=== PATIENT | female | born 1955 | race Caucasian/White ===

== ENCOUNTER → 2019-04-09 15:55 | Outpatient (CLI) | payer BC, SELFPAY ==
--- NOTE | 2019-04-09 16:03 | MM_ITS ---
PROCEDURE: MM DIG SCREENING MAMM BI W/CAD Patient Age:63Y CLINICAL INDICATION: SCREENING: No hormones. No new complaints. Noncontributory family history. COMPARISON: DIGMAMMS MAMMOGRAM SCREEN-SAP DEVELOPER N/C from 10/02/2008 DIGMAMMS MAMMOGRAM SCREEN-SAP DEVELOPER N/C from 10/23/2009 DIGMAMMDX MAMMOGRAM DX-SAP DEVELOPER N/C from 11/06/2009 DMSB DIGITAL MAMM-SCREEN BILATERAL from 10/02/2010 DMSB DIGITAL MAMM-SCREEN BILATERAL from 10/15/2011 DMSB DIG MAMM-SCREEN BETHANY from 02/15/2013 DMSB DIG MAMM-SCREEN BETHANY from 04/11/2014 DMSB DIG MAMM-SCREEN BETHANY from 03/22/2016 DMSB DIG MAMM-SCREEN BETHANY W/CAD from 04/13/2017 TECHNIQUE: Standard CC and MLO images were obtained. R2 CA she d reviewed. FINDINGS: Overall moderate breast density. Moderate density of slight asymmetry,. Heterogeneous fibroglandular elements at the central breast extend towards towards upper-outer quadrant both breast again encountered, similar pattern to previous studies dating back to at least 2011. No new dominant or suspicious new mass. No suspicious calcifications. Similar stable mild asymmetry. Left breast. No new areas significant concern Stable mild asymmetric area of tissue at superior left breast MLO view similar to studies dating back to 2013, 2012 2011 MLO views.. Can be followed.. CC view adequately stable as well Right breast: No significant new findings. Follow-up 1 year adequate Suggest encouraging self-breast examination to complement mammography in this moderately dense somewhat asymmetric breast IMPRESSION: no new areas significant concern Follow-up 1 year recommended Stable mild asymmetry. Moderate density breast. BI-RAD Category: 2 Benign Finding(s) FOLLOW-UP: 1YR 1 Year Follow-up (A letter has been sent to the patient regarding results of the study.) Dictated by: Herb Lockett MD 04/12/2019 09:07 Electronically signed by Herb Lockett MD in [place] 04/16/2019 08:41
== END ==
PROVIDERS: PCP Pediatrics; Visit Provider Pediatrics
DX: Z12.31 Encounter for screening mammogram for malignant neoplasm of breast (principal)
CPT/HCPCS: 77067

== ENCOUNTER → 2020-07-16 16:03 | Outpatient (CLI) | payer BC, SELFPAY ==
--- NOTE | 2020-07-16 16:09 | MM_ITS ---
PROCEDURE: MM DIG SCREENING MAMM BI W/CAD Digital Breast Tomosynthesis Included CLINICAL INDICATION: SCREENING There is no personal or family history of breast cancer. COMPARISON: MG DMSB DIG MAMM-SCREEN BETHANY from 03/22/2016 MG DMSB DIG MAMM-SCREEN BETHANY W/CAD from 04/13/2017 MG MM DIG SCREENING MAMM BI W/CAD from 04/09/2019 TECHNIQUE: Standard CC and MLO images and 3D Tomosynthesis was obtained. R2 CAD reviewed. FINDINGS: Moderate scattered fibroglandular densities are seen in both breast. There are 2 benign-appearing calcifications right breast and 2 benign-appearing microcalcifications left breast. There is no new or suspicious lesion in either breast and no suspicious microcalcifications. IMPRESSION: Stable moderate breast density with no suspicious lesions seen BI-RAD Category: 2 Benign Finding(s) FOLLOW-UP: 1YR 1 Year Follow-up (A letter has been sent to the patient regarding results of the study.) Dictated by: Dr. Ant Nunez MD 07/22/2020 08:06 Dr. Ant Nunez MD in [place] 07/22/2020 08:06
== END ==
PROVIDERS: PCP Pediatrics; Visit Provider Pediatrics
DX: Z12.31 Encounter for screening mammogram for malignant neoplasm of breast (principal)
CPT/HCPCS: 77063; 77067

== ENCOUNTER → 2023-04-21 14:28 | Outpatient (CLI) | payer MEDICARE, BC, SELFPAY ==
--- NOTE | 2023-04-21 14:33 | MM_ITS ---
PROCEDURE INFORMATION: Exam: MG Bilateral Screening 3D Mammography Exam date and time: 04/21/2023 2:28 PM Age: 67 years old Clinical indication: Screening examination TECHNIQUE: Imaging protocol: Bilateral Screening tomosynthesis and 2D mammography including computer-aided detection (CAD) when performed. COMPARISON: 1. MG MM DIG SCREENING MAMM BI W/CAD 07/16/2020 4:05 PM 2. MG MM DIG SCREENING MAMM BI W/CAD 04/09/2019 4:24 PM FINDINGS: MAMMOGRAPHY: Breast composition: There are scattered areas of fibroglandular density. Mass: None. Architectural distortion: None. Calcifications: No suspicious calcifications. Asymmetric density: None. Skin thickening: None. Axillary adenopathy: None. IMPRESSION: No mammographic evidence of malignancy. Annual screening is recommended unless otherwise clinically indicated. ASSESSMENT: BI-RADS Category 1: Negative
== END ==
PROVIDERS: PCP Pediatrics; Visit Provider Pediatrics
DX: Z12.31 Encounter for screening mammogram for malignant neoplasm of breast (principal)
CPT/HCPCS: 77063; 77067